=== PATIENT | female | born 1940 | race Caucasian/White ===

== ENCOUNTER → 2025-05-20 12:59 | Outpatient (REF) | payer MEDICARE, SELFPAY | LOC: HWRAD 12:59 | PROVIDERS: ATTENDING PHYSICIAN Internal Medicine; FAMILY PHYSICIAN Family Medicine | DX: R79.89 Other specified abnormal findings of blood chemistry (principal); I1A.0 Resistant hypertension | CPT/HCPCS: 93975 ==